=== PATIENT | female | born 1990 | race Caucasian/White ===

== ENCOUNTER 2021-01-04 06:23 | Inpatient (IN) ==
[2021-01-04] MEDS ORDERED: NS 100 ML IV 100 ML ONE (06:44)
[2021-01-04] MEDS ORDERED: ANCEF VIAL 1 GRAM ONE (06:44)
[2021-01-04] MEDS ORDERED: LR 1,000 ML IV 1,000 ML IV ONE ×2 (06:44→07:45)
[2021-01-04] MEDS ORDERED: DILAUDID INJ ONE (07:17)
[2021-01-04] MEDS ORDERED: MARCAINE SPINAL ONE (07:21)
[2021-01-04] MEDS ORDERED: EPHEDRINE SULFATE INJ ONE (07:21)
[2021-01-04] MEDS ORDERED: XYLOCAINE 1 % (PLAIN) ONE (07:21)
[2021-01-04] MEDS ORDERED: VERSED ONE (07:21)
[2021-01-04] MEDS ORDERED: BARHEMSYS INJ IVP PRN (08:28)
[2021-01-04] MEDS ORDERED: PHENERGAN INJ 25 MG IM PRN (08:28)
[2021-01-04] MEDS ORDERED: REGLAN INJ 10 MG VIAL IVP PRN ×2 (08:28→09:54)
[2021-01-04] MEDS ORDERED: ZOFRAN INJ 4 MG VIAL IVP PRN ×2 (08:28→09:54)
[2021-01-04] MEDS ORDERED: BENADRYL INJ 50 MG VIAL IVP PRN ×2 (08:28→09:54)
[2021-01-04] MEDS ORDERED: DILAUDID INJ IVP PRN (08:28)
[2021-01-04] MEDS ORDERED: D5 1/2 NS 1,000 mL + PITOCIN 20 UNITS/L IV 20 UNITS/1,000 ML BAG IV ONE (08:35)
[2021-01-04] MEDS ORDERED: ADACEL or BOOSTRIX TDaP VACCINE IM ONE (09:54)
[2021-01-04] MEDS ORDERED: PERCOCET TAB 5/325 MG PO PRN (09:54)
[2021-01-04] MEDS ORDERED: D5 1/2 NS 1,000 ML 1,000 ML IV SCH (09:54)
[2021-01-04] MEDS ORDERED: ANCEF VIAL 1 GRAM IVP ONE (09:54)
[2021-01-04] MEDS ORDERED: NARCAN INJ IVP PRN (09:54)
[2021-01-04] MEDS ORDERED: MYLICON TAB 80 MG CHEW PO PRN (09:54)
[2021-01-04] MEDS ORDERED: D5 1/2 NS 1,000 ML 1,000 ML with PITOCIN 20 UNITS IV SCH ×2 (10:00)
[2021-01-04] MEDS: TORADOL 30 MG VIAL IVP PRN (14:30)
[2021-01-04] MEDS ORDERED: NS IRRIGATION* 1,000 ML ONE (15:36)
[2021-01-05] MEDS: TORADOL 30 MG VIAL IVP PRN (00:13)
[2021-01-05 03:43] LABS: HEMATOCRIT 25.1 % (36.0-47.0); HEMOGLOBIN 8.1 g/dL (12.0-16.0)
[2021-01-05] MEDS ORDERED: PERCOCET TAB 5/325 MG PO PRN (07:14)
[2021-01-05] MEDS: PROTONIX TAB 40 MG PO SCH (08:40)
[2021-01-05] MEDS: MOTRIN TAB 800 MG PO PRN ×2 (08:40→17:50)
[2021-01-05] MEDS: PRENATAL PLUS PO SCH (08:40)
[2021-01-05] MEDS: COLACE CAP 100 MG PO SCH ×2 (08:40→21:51)
[2021-01-05] MEDS: BACTROBAN TOPICAL OINT TOP SCH ×2 (14:30→21:53)
[2021-01-05] MEDS: FERROUS GLUCONATE PO SCH (17:58)
[2021-01-06] MEDS: BACTROBAN TOPICAL OINT TOP SCH (06:11)
[2021-01-06 08:12] VITALS: BP 106/59
[2021-01-06] MEDS: PRENATAL PLUS PO SCH (08:34)
[2021-01-06] MEDS: FERROUS GLUCONATE PO SCH (08:34)
[2021-01-06] MEDS: PROTONIX TAB 40 MG PO SCH (08:34)
[2021-01-06] MEDS: COLACE CAP 100 MG PO SCH (08:34)
[2021-01-06] MEDS: MOTRIN TAB 800 MG PO PRN (11:09)
== END 2021-01-06 11:30 | disposition home or self-care (01) | DRG 785 ==
LOC: LD 06:23 → MED/SURG 10:30
PROVIDERS: ADMIT Specialist; ATTEND Specialist
DX: Z3A.39 39 weeks gestation of pregnancy; O69.5XX2 Labor and delivery complicated by vascular lesion of cord, fetus 2; Z30.2 Encounter for sterilization; Z37.0 Single live birth; O75.89 Other specified complications of labor and delivery; O24.429 Gestational diabetes mellitus in childbirth, unspecified control; O34.211 Maternal care for low transverse scar from previous cesarean delivery; O99.02 Anemia complicating childbirth; O24.419 Gestational diabetes mellitus in pregnancy, unspecified control